=== PATIENT | female | born 1985 | race Caucasian/White ===

== ENCOUNTER 2017-04-10 09:27 | Emergency (ER) ==
[2017-04-10] MEDS ORDERED: ZESTRIL PO STA (09:35)
[2017-04-10 09:41] VITALS: TEMP 96.7; BMI 51.5
--- NOTE | 2017-04-10 10:51 | DI ---
EXAM: LEFT ELBOW HISTORY: Elbow pain FINDINGS: Left elbow three-view. Bone and joint structures appear normal. There is no joint disloc ation or effusion. No fracture is identified. Bone density and soft tissues are within normal limit s. IMPRESSION: Findings within normal limits.
--- NOTE | 2017-04-10 10:53 | DI ---
EXAM: LEFT WRIST THREE VIEWS HISTORY: Fall, pain FINDINGS: Bone and joint structures appear normal. No joint dislocation, displaced fracture or ashlyn ne density abnormality. Soft tissues are within normal limits. No arthritic change. IMPRESSION: Unremarkable study.
--- NOTE | 2017-04-10 10:53 | DI ---
EXAM: LEFT FOREARM, 2 VIEWS HISTORY: Forearm pain FINDINGS: No displaced fracture or bony erosion. Joints are within normal limits. No joint disloca tion or effusion. Soft tissues within normal limits. IMPRESSION: Within normal limits.
--- NOTE | 2017-04-10 10:56 | DI ---
EXAM: LEFT HAND THREE VIEWS HISTORY: Injury, pain FINDINGS: Bone and joint structures appear normal. There is no fracture, joint dislocation, bone density abnormality or soft tissue finding. IMPRESSION: Within normal limits.
[2017-04-10 11:15] VITALS: BP 158/88
--- NOTE | 2017-04-10 11:22 | ED.PDOC ---
General ED Provider: Dr. DENIA ADAME Chief Complaint: Extremity Pain/Injury Stated Complaint: fall left upper ext pain Time Seen by Physician: 09:33 (nav present at all times ) Mode of Arrival: Walk-In Information Source: Patient Exam Limitations: No limitations Nursing and Triage Documentation Reviewed and Agree: Yes Reviewed sepsis parameters & appropriate labs ordered?: Yes System Inflammatory Response Syndrome: Not Applicable Sepsis Protocol: For patient's 13 years and over: Temp is 96.8 and below OR 101 and greater Pulse >90 BPM Resp >20/minute Acutely Altered Mental Status Are patient's symptoms suggestive of a new infection, such as: -Pneumonia -Skin, Soft Tissue -Endocarditis -UTI -Bone, Joint Infection -Implantable Device -Acute Abdominal Infection -Wound Infection -Meningitis -Blood Stream Catheter Infection -Unknown System Inflammatory Response Syndrome: Not Applicable Musculoskeletal Complaint Exam - Upper Extremity Complaint/Exam Location of Pain: Reports: Left, Elbow, Forearm Mechanism of Injury: Reports: Trauma Onset/Duration: fall today on ice also OFF B/P MEDS X MONTHS Symptoms Are: Still present Timing: Constant Episodes Lasting: Minutes Initial Severity: Mild Current Severity: Mild Location: Reports: Discrete Character: Reports: Aching Aggravating: Reports: None Alleviating: Reports: None Non-Orthopedic Risk Factors: Reports: None DVT Risk Factors: Reports: None Septic Arthritis Risk Factors: Reports: None Related Surgical History: Reports: None NV Bundle Intact Distal to Injury: No Compartment Syndrome Risk Factors: Present: Pain Differential Diagnoses: Closed Fracure Review of Systems - Review Of Systems Constitutional: Reports: No symptoms Eyes: Reports: No symptoms Ears, Nose, Mouth, Throat: Reports: No symptoms Respiratory: Reports: No symptoms Cardiac: Reports: No symptoms GI: Reports: No symptoms : Reports: No symptoms Musculoskeletal: Reports: Other (LEFT UPPER EXT PAIN) Skin: Reports: No symptoms Neurological: Reports: No symptoms Endocrine: Reports: No symptoms Hematologic/Lymphatic: Reports: No symptoms All Other Systems: Reviewed and Negative Past Medical History - Past Medical History Previously Healthy: Yes Endocrine: Reports: None Cardiovascular: Reports: Hypertension Respiratory: Reports: None Hematological: Reports: None Gastrointestinal: Reports: None Genitourinary: Reports: None Neuro/Psych: Reports: None Musculoskeletal: Reports: None Cancer: Reports: None Last Menstrual Period: 1 week - Surgical History General Surgical History: Reports: None - Family History Family History: Reports: None - Social History Smoking Status: Never smoker Hx Substance Use: No Alcohol Screening: Occasionally Physical Exam - Physical Exam Appearance: Well-appearing, No pain distress, Well-nourished Eyes: LALA, EOMI, Conjunctiva clear ENT: Ears normal, Nose normal, Oropharynx normal Respiratory: Airway patent, Breath sounds clear, Breath sounds equal, Respirations nonlabored Cardiovascular: RRR, Pulses normal, No rub, No murmur GI/: Soft, Nontender, No masses, Bowel sounds normal, No Organomegaly Musculoskeletal: Normal strength, ROM intact, No edema, No calf tenderness Skin: Warm, Dry, Normal color Neurological: Sensation intact, Motor intact, Reflexes intact, Cranial nerves intact, Alert, Oriented Psychiatric: Affect appropriate, Mood appropriate Interpretation - Radiology Interpretation Radiology Interpretation By: Radiologist Radiology Results: No acute changes Critical Care Note - Critical Care Note Total Time (mins): 0 Course - Course Orders, Labs, Meds: Lab Review 04/10/17 10:15 Urine Test Negative Orders Category Date Time Status URINE Stat LAB 04/10/17 10:15 Completed Lisinopril [Zestril] MEDS 04/10/17 09:35 Discontinued 40 mg PO ONCE STA ELBOW, LEFT MIN 3 VIEWS Stat RADS 04/10/17 09:34 Completed FOREARM, LEFT 2 VIEWS Stat RADS 04/10/17 09:32 Completed HAND, LEFT 3 VIEWS Stat RADS 04/10/17 09:33 Completed WRIST, LEFT 3 VIEWS Stat RADS 04/10/17 09:32 Completed Medications Discontinued Medications Generic Name Dose Route Start Last Admin Trade Name Freq PRN Reason Stop Dose Admin Lisinopril 40 mg 04/10/17 09:35 04/10/17 09:58 Zestril PO 04/10/17 09:36 40 mg ONCE STA Administration Vital Signs: Temp Pulse Resp BP Pulse Ox 04/10/17 11:15 158/88 H 04/10/17 09:29 96.7 F L 86 20 193/120 H 97 Departure - Departure Time of Disposition: 11:23 Disposition: HOME SELF-CARE Discharge Problem: Hypertension Left wrist sprain Qualifiers: Encounter type: initial encounter Qualified Code(s): S63.502A - Unspecified sprain of left wrist, initial encounter Instructions: Wrist Injury (ED), Wrist Sprain (ED), Hypertension (ED) Condition: Good Pt referred to PMD for follow-up: Yes IPMP verified?: Yes Additional Instructions: Please call your Family Physician as soon as possible to schedule a follow-up appointment. Allergies/Adverse Reactions: Allergies No Known Allergies Allergy (Unverified 04/10/17 09:40) Home Medications: Ambulatory Orders Hydrocodone/Acetaminophen [Evans 10-325 Tablet] 1 each PO Q8HR #7 tablet Lisinopril 40 mg PO DAILY 10 Days #10 tablet 04/10/17 Disposition Discussed With: Patient
== END 2017-04-10 11:40 | disposition home or self-care (01) ==
LOC: ED 09:27
DX: S63.502A Unspecified sprain of left wrist, initial encounter (principal); I10 Essential (primary) hypertension; W00.0XXA Fall on same level due to ice and snow, initial encounter
CPT/HCPCS: 81025; 99283

== ENCOUNTER 2017-05-12 08:51 | Outpatient (CLI) ==
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
== END 2017-05-12 08:52 | disposition home or self-care (01) ==
LOC: RAD 08:51
PROVIDERS: ATTEND Physician Assistant
DX: M54.5 Low back pain (principal)

== ENCOUNTER 2017-10-14 12:44 | Emergency (ER) ==
[2017-10-14 12:49] VITALS: BP 152/109; TEMP 97.9; BMI 49.9
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
--- NOTE | 2017-10-14 15:13 | DI ---
EXAM: RIGHT FOOT, 3 VIEWS HISTORY: Foot injury, pain FINDINGS: Bone and joint structures appear normal. No displaced fracture or joint dislocation is s een. There is no joint effusion. Soft tissues within normal limits. IMPRESSION: Within normal limits.
== END 2017-10-14 14:40 | disposition home or self-care (01) ==
LOC: ED 12:44
DX: S90.31XA Contusion of right foot, initial encounter (principal); T07.XXXA Unspecified multiple injuries, initial encounter; I10 Essential (primary) hypertension; Y09 Assault by unspecified means
CPT/HCPCS: 36415; 84703; 99283

== ENCOUNTER 2017-10-21 13:54 | Emergency (ER) ==
[2017-10-21 13:58] VITALS: TEMP 98.4; BMI 50.2
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
[2017-10-21] MEDS ORDERED: MOTRIN PO STA (14:39)
--- NOTE | 2017-10-21 14:42 | DI ---
Exam: Three views of the right foot. Comparison: 10/14/2017. Reason for exam: Pain. FINDINGS: No acute fracture or malalignment. The joint spaces appear well maintained. No sclerotic changes are seen to suggest occult fracture. No unexplained calcific soft tissue density or radiopa que retained foreign body. Impression: No acute fracture or dislocation in the right foot
[2017-10-21] MEDS ORDERED: CATAPRES PO STA (15:07)
[2017-10-21 16:11] VITALS: BP 142/95
== END 2017-10-21 16:11 | disposition home or self-care (01) ==
LOC: ED 13:54
DX: S93.601A Unspecified sprain of right foot, initial encounter (principal); I10 Essential (primary) hypertension; Y04.2XXA Assault by strike against or bumped into by another person, initial encounter
CPT/HCPCS: 99282